=== PATIENT | male | born 1985 | race Caucasian/White ===

== ENCOUNTER 2024-04-22 20:23 | Day surgery (SDC) | payer OTHER, SELFPAY ==
[2024-04-22 11:20] VITALS: BP 149/98
[2024-04-22] MEDS: VALIUM 5 MG PO ×2 (12:56→16:49)
[2024-04-22] MEDS: TORADOL 30 MG IM (12:56)
[2024-04-22 13:34] VITALS: BP 141/91
[2024-04-22] MEDS: PERCOCET 5/325 2 TABLET PO (14:39)
--- NOTE | 2024-04-22 14:45 | ED.GENMED ---
History of Present Illness
<Braulio Manjarrez Jr., PA-C - Last Filed: 04/23/24 10:10>
General
Chief Complaint: Musculo-Skeletal Complaint
Source: patient
Exam Limitations: none
Time Seen by Provider: 04/22/24 11:53
Nursing documentation reviewed up to this point in time: agreed with
History of Present Illness
History of Present Illness:
38-year-old male history of von Willebrand disease presenting to the emergency department today with concerns of right-sided knee discomfort. He claims that he was kneeling on the floor when doing some jennifer and stood up right knee was not able
to extend. Does have a history of ACL MCL and meniscus injuries to the knee. Denies additional injuries otherwise.
Past History
<Braulio Manjarrez Jr., PA-C - Last Filed: 04/23/24 10:10>
Past History
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
ED Past Surgical History: Orthopedic and Other (hernia repair and tonsils and wisdom teeth )
Social History
Tobacco: Non-smoker
Alcohol: Occasional
Drug: None
Personal:
Living: with family
Employment: Employed
Family History
Family History: Other (Noncontributory)
Review of Systems
<Braulio Manjarrez Jr., PA-C - Last Filed: 04/23/24 10:10>
Review of Systems
Allergies reviewed?: Yes
All Other Systems: ROS reviewed and negative except as documented in HPI and ROS
Phy Exam
<Braulio Manjarrez Jr., PA-C - Last Filed: 04/23/24 10:10>
Physical Exam
Physical Exam:
GENERAL: Alert , in no apparent distress
EYE: pupils equal and reactive
NECK: Supple, no significant adenopathy.
ENT: o/p clr, mmm.
CARDIAC: Regular rate and rhythm .
LUNGS: Clear breath sounds bilaterally, no acute respiratory distress, no wheezes/rales/rhonchi
ABDOMEN: Soft, without focal tenderness, no r/g, no cvat
NEUROLOGICAL: Alert and oriented, no focal neuro deficits
SKIN: Warm and dry, skin intact.
MUSCULOSKELETAL: Right knee held at 90 degrees flexion unable to fully extend no specific tenderness to palpation normal distal neurovascular examination well perfused.
PSYCH: Normal and appropriate interaction.
Course
<Braulio Manjarrez Jr., KEIRA-Lupis - Last Filed: 04/23/24 10:10>
Orders/Labs/Results
Orders:
Orders
04/22/24 Breakfast
Regular
At Your Request: Full Participation
04/22/24 12:49
Diazepam [Valium] 5 mg PO NOW STA
Ketorolac [Toradol] 30 mg IM NOW STA
CR Knee- Right 4 Or More View* Urgent
Comment:
Reason For Exam: knee pain stuck in flexion
04/22/24 14:36
Oxycodone/Acetaminophen [Percocet 5/325] 2 tablet PO NOW STA
04/22/24 16:15
HYDROmorphone [Dilaudid] 1 mg IM NOW STA
04/22/24 16:45
Diazepam [Valium] 5 mg PO NOW STA
04/22/24 18:16
IV Insert/Care/Rem.- Treatment PRN
HYDROmorphone [Dilaudid] 1 mg IV NOW STA
04/22/24 18:30
Complete Blood Count/With Diff Urgent
Comprehensive Metabolic Panel Urgent
04/22/24 19:37
Admit/Transfer Patient As Directed
Co-Sign Provider:
Level of Care: Observation services
Assign to:: Medical/Surgical
Physician / Group: Dami
Diagnosis: Right Knee Pain/Locking
Code Status As Directed
Resuscitation Status: Full Code
PRN Pain Medication Management As Directed
May give lesser potent ordered pain med per pt: Yes
preference::
Protocol:: Medication orders for pain may be administered in a
manner that supports deferring to patient preference
when the pt is:
- Requesting an ordered lesser potent pain medication.
Least to most potent pain medications are defined
as: acetaminophen < NSAID < tramadol < opioids
(morphine, oxycodone, hydromorphone).
- Requesting a lesser dose of the same medication IF
ORDERED.
- Requesting a less intrusive route of administration
if both routes are prescribed by the provider (PO <
IV).
04/22/24 21:00
0.9% Sodium Chloride 1000 ml [Nss] 1,000 ml IV 100 mls/hr
Acetaminophen [Tylenol] 650 mg PO Q4HPRN PRN
Ondansetron Injectable [Zofran] 4 mg IV Q6HPRN PRN
Oxycodone [Roxicodone] 5 mg PO Q4HPRN PRN
04/22/24 21:00
ORTHOPEDIC CONSULT Routine
Consulting Provider: Wagner Barrett
Was physician already notified: Yes
Bladder Scan As Directed
Follow Bladder Retention/Intermittent Cath Algorithm?: Yes
PRN if no void in __ hours: 6
Frequency: Per Retention Algorithm
If Bladder Scan Result >: 400
then:: Straight cath
I&O [Intake/ Output] As Directed
Frequency: q12h
Pneumatic Compression Sleeves As Directed
Type: Knee high
Straight Cath As Directed
Frequency: Per Retention Algorithm
Additional Instructions: straight cath as needed per acute urinary retention algorithm for 24 hrs
Additional Instructions: for bladder scan greater than 400 mL
Vital Signs As Directed
Frequency: Per unit guidelines
DX Deep Vein Thrombosis Video Routine
04/22/24 21:09
HYDROmorphone [Dilaudid] 0.5 mg IV Q3HPRN PRN
04/22/24 22:36
PTT Urgent
Prothrombin Time Urgent
04/23/24 Breakfast
NPO
Allow oral meds: Yes
Allow clear liquids: 4hrs prior to procedure
Comment: may have unrestricted clear liquid up to 4 hrs prior to scheduled procedure
Abnormal Lab Results
04/22/24
18:30
RBC 4.53 L 10^6/uL
(4.70-6.10)
Hct 38.2 L %
(39.0-52.0)
MPV 10.7 H fL
(7.4-10.4)
Absolute Monos (auto) 0.7 H 10^3/uL
(0.1-0.6)
Monocytes % 10.3 H %
(1.7-9.3)
Glucose 100 H mg/dl
(70-99)
04/22/24 18:30
04/22/24 18:30
Vital Signs
Initial and Last Documented VS:
Initial Vital Signs
Temp Pulse Resp BP Pulse Ox
97.9 F 95 18 149/98 98
04/22/24 11:20 04/22/24 11:20 04/22/24 11:20 04/22/24 11:20 04/22/24 11:20
Last Documented Vital Signs
Temp Pulse Resp BP Pulse Ox
97.8 F 78 16 138/77 99
04/23/24 07:00 04/23/24 07:00 04/23/24 07:00 04/23/24 07:00 04/23/24 07:00
<Kadie Haro, DO - Last Filed: 04/22/24 18:30>
Orders/Labs/Results
Orders:
Orders
04/22/24 Breakfast
Regular
At Your Request: Full Participation
04/22/24 12:49
Diazepam [Valium] 5 mg PO NOW STA
Ketorolac [Toradol] 30 mg IM NOW STA
CR Knee- Right 4 Or More View* Urgent
Comment:
Reason For Exam: knee pain stuck in flexion
04/22/24 14:36
Oxycodone/Acetaminophen [Percocet 5/325] 2 tablet PO NOW STA
04/22/24 16:15
HYDROmorphone [Dilaudid] 1 mg IM NOW STA
04/22/24 16:45
Diazepam [Valium] 5 mg PO NOW STA
04/22/24 18:16
IV Insert/Care/Rem.- Treatment PRN
HYDROmorphone [Dilaudid] 1 mg IV NOW STA
04/22/24 18:30
Complete Blood Count/With Diff Urgent
Comprehensive Metabolic Panel Urgent
04/22/24 19:37
Admit/Transfer Patient As Directed
Co-Sign Provider:
Level of Care: Observation services
Assign to:: Medical/Surgical
Physician / Group: Dami
Diagnosis: Right Knee Pain/Locking
Code Status As Directed
Resuscitation Status: Full Code
PRN Pain Medication Management As Directed
May give lesser potent ordered pain med per pt: Yes
preference::
Protocol:: Medication orders for pain may be administered in a
manner that supports deferring to patient preference
when the pt is:
- Requesting an ordered lesser potent pain medication.
Least to most potent pain medications are defined
as: acetaminophen < NSAID < tramadol < opioids
(morphine, oxycodone, hydromorphone).
- Requesting a lesser dose of the same medication IF
ORDERED.
- Requesting a less intrusive route of administration
if both routes are prescribed by the provider (PO <
IV).
04/22/24 21:00
0.9% Sodium Chloride 1000 ml [Nss] 1,000 ml IV 100 mls/hr
Acetaminophen [Tylenol] 650 mg PO Q4HPRN PRN
Ondansetron Injectable [Zofran] 4 mg IV Q6HPRN PRN
Oxycodone [Roxicodone] 5 mg PO Q4HPRN PRN
04/22/24 21:00
ORTHOPEDIC CONSULT Routine
Consulting Provider: Wagner Barrett
Was physician already notified: Yes
Bladder Scan As Directed
Follow Bladder Retention/Intermittent Cath Algorithm?: Yes
PRN if no void in __ hours: 6
Frequency: Per Retention Algorithm
If Bladder Scan Result >: 400
then:: Straight cath
I&O [Intake/ Output] As Directed
Frequency: q12h
Pneumatic Compression Sleeves As Directed
Type: Knee high
Straight Cath As Directed
Frequency: Per Retention Algorithm
Additional Instructions: straight cath as needed per acute urinary retention algorithm for 24 hrs
Additional Instructions: for bladder scan greater than 400 mL
Vital Signs As Directed
Frequency: Per unit guidelines
DX Deep Vein Thrombosis Video Routine
04/22/24 21:09
HYDROmorphone [Dilaudid] 0.5 mg IV Q3HPRN PRN
04/22/24 22:36
PTT Urgent
Prothrombin Time Urgent
04/23/24 Breakfast
NPO
Allow oral meds: Yes
Allow clear liquids: 4hrs prior to procedure
Comment: may have unrestricted clear liquid up to 4 hrs prior to scheduled procedure
Abnormal Lab Results
04/22/24
18:30
RBC 4.53 L 10^6/uL
(4.70-6.10)
Hct 38.2 L %
(39.0-52.0)
MPV 10.7 H fL
(7.4-10.4)
Absolute Monos (auto) 0.7 H 10^3/uL
(0.1-0.6)
Monocytes % 10.3 H %
(1.7-9.3)
Glucose 100 H mg/dl
(70-99)
04/22/24 18:30
04/22/24 18:30
Vital Signs
Initial and Last Documented VS:
Initial Vital Signs
Temp Pulse Resp BP Pulse Ox
97.9 F 95 18 149/98 98
04/22/24 11:20 04/22/24 11:20 04/22/24 11:20 04/22/24 11:20 04/22/24 11:20
Last Documented Vital Signs
Temp Pulse Resp BP Pulse Ox
97.8 F 78 16 138/77 99
04/23/24 07:00 04/23/24 07:00 04/23/24 07:00 04/23/24 07:00 04/23/24 07:00
<Braulio Manjarrez Jr., KEIRA-Lupis - Last Filed: 04/23/24 10:10>
MDM/Problems Addressed
MDM/Problems Addressed:
38-year-old male presenting to the emergency department today with concerns of right-sided knee discomfort held at here at 90 degrees unable to extend secondary to pain. Occurred after kneeling on the ground. No specific trauma to the area. Vital
signs normal here no redness or warmth no signs of infection patella seems to be in place normal distal neurovascular examination. Potentially meniscal injury x-ray without signs of acute abnormalities. Patient was given Valium as well as Toradol
to help with muscle laxation still unable to straighten the leg. Was given additional IM dose of Dilaudid still pain uncontrolled unable to straighten the leg. Case discussed with orthopedics and recommended lidocaine injection to the knee and
then try to straighten the leg after that. Lidocaine injection was attempted but still without proper pain control. Still unable to extend the leg. Again Case discussed with orthopedics and they were informed that we are unable to properly extend
the patient's leg despite multiple times and modalities of pain control in the ER concerning this plan to admit for pain control and potential OR intervention.
<Braulio Manjarrez Jr., PA-C - Last Filed: 04/23/24 10:10>
*Critical Care Note
Total Time (30-74mins, 75-104mins- exclusive of procedures): Not Applicable
ED Attending Note
<Braulio Manjarrez Jr., PA-C - Last Filed: 04/23/24 10:10>
-
Portions of this chart may have been created with voice recognition software.� Occasional wrong word or��sound alike� substitutions may have occurred due to the inherent limitations of voice recognition software.
<Kadie Haro DO - Last Filed: 04/22/24 18:30>
ED Attending Note
Patient seen and examined by attending physician: Yes
I performed the substantive portion of visit, reviewed & personally made and approve the management plan that is documented in note by myself or TARA.: Yes
I performed a history and physical exam of patient and discussed management with resident, I reviewed resident's note and agree with documented findings and plan of care.: Yes
ED Attending Note:
Patient seen and examined at bedside, 38-year-old male with prior history of meniscal injury to the right knee presenting for right knee pain. Patient reports prior to arrival he was kneeling down and when he got up, was unable to extend his knee.
Denies numbness or tingling to the knee. Denies ever having this issue in the past. Denies any direct trauma. Patient seen and evaluated by physician psychiatric nursing assistant, x-ray obtained, limited given positioning of knee, without fracture or malalignment.
On my examination, knee is held in flexed position. Distal sensation and pulses intact. Physician psychiatric nursing assistant had tried IV pain medication and intra-articular lidocaine, without success of extension. Attempted myself x 2 to administer bupivacaine
intra-articularly. Patient had difficulty tolerating procedure, and after procedure, again unable to extend. Did discuss with orthopedics. Plan for admission for pain control and orthopedic consultation.
Discharge Plan
Departure
Patient Disposition: Admit
Date of Disposition: 04/22/24
Time of Disposition: 18:37
Admit to: Med/Surg
Admit to doctor: Nikolay
Presentation/result/management discussed w/ accepting MD/DO: Hospitalist
Patient with high blood pressure during this ER visit?: No
Condition: Good
Covid-19: Not Applicable
Discharge Problem:
Locking of right knee, Acute knee pain
Interventions
Interventions:
*Risk Screen - Suicide Last Done: 04/22/24 11:20
*General Assessment Last Done: 04/22/24 11:20
*Neglect/Abuse Screening Last Done: 04/22/24 11:20
ED- Fall Risk Assessment Last Done: 04/22/24 20:57
*ED COVID-19 Vaccine History Last Done: 04/22/24 11:48
*Nursing Disposition Last Done: 04/22/24 20:57
ED-Musculoskeletal Assessment Last Done: 04/22/24 11:48
Discharge Date and Time
Discharge Date/Time: 04/22/24 20:58
[2024-04-22 15:59] VITALS: BP 138/79
[2024-04-22] MEDS: DILAUDID 1 MG IM (16:18)
[2024-04-22] MEDS: DILAUDID 1 MG IV (18:35)
[2024-04-22 18:37] VITALS: BP 166/98
[2024-04-22 18:39] LABS: % Basophils 0.4 % (0-2); % Eosinophils 1.1 % (0-6); % Immature Granulocytes 0.3 % (0-0.5); % Lymphocytes 34.5 % (20.5-51.1); % Monocytes 10.3 % (1.7-9.3); % Neutrophils 53.4 % (42.2-75.2); Absolute Eosinophils 0.1 10^3/uL (0-0.7); Absolute Lymphocytes 2.4 10^3/uL (1.2-3.4); Absolute Monocytes 0.7 10^3/uL (0.1-0.6); Absolute Neutrophils 3.8 10^3/uL (1.4-6.5); Hematocrit 38.2 % (39.0-52.0); Hemoglobin 13.8 g/dL (13.0-18.0); Mean Corp Hgb Conc. 36.1 g/dL (33.0-37.0); Mean Corpuscular Hgb 30.5 pg (27.0-31.0); Mean Corpuscular Volume 84.3 fL (80.0-94.0); Mean Platelet Volume 10.7 fL (7.4-10.4); Nucleated Red Blood Cells % 0 % (-); Platelet Count 201 10^3/uL (130-400); Red Blood Cell Count 4.53 10^6/uL (4.70-6.10); Red Cell Dist. Width 12.6 % (11.5-14.5)
[2024-04-22 19:00] LABS: ALT (SGPT) 21 U/L (0-50); AST (SGOT) 28 U/L (17-59); Albumin 4.4 g/dl (3.5-5.0); Alkaline Phosphatase 59 U/L (38-126); Blood Urea Nitrogen 16 mg/dl (9-20); Calcium 9.6 mg/dl (8.4-10.2); Carbon Dioxide 27 mmol/L (22-30); Chloride 100 mmol/L (98-107); Glucose 100 mg/dl (70-99); Sodium 138 mmol/L (135-145); Total Protein 6.6 g/dl (6.3-8.2); eGFR > 60.00
--- NOTE | 2024-04-22 19:40 | HPS.HSE ---
Addendum entered and electronically signed by Kristian Lomax DO 04/22/24 21:06:
Patient seen and examined independently. Agree with findings and plan as set forth by Dejah Morales PA-C.
Patient is a 38y M with PMH significant for prior ACL and MCL repairs of the R knee who presents to ED complaining of inability to straighten his R knee and associated pain. 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
installation. When he stood up he was unable to straighten his R knee. He has pain with attempts to straighten the knee. He denies any recent illness, fevers / chills, erythema or swelling.
Patient was seen in the ED where multiple attempts to extend his knee were unsuccessful.
Ass:
Right Knee Flexion / Pain
Plan:
Observe overnight for further evaluation and treatment.
Ortho evaluation in the AM and possible OR if symptoms worsen or persist.
Original Note:
Family Physician
-
Family Physician: Alfonzo Kwon
Chief Complaint
-
Severe Right Knee Pain
History of Present Illness
Pt is a 38 yo M without significant PMH c/o R knee pain and inability to straighten R knee x 1 day. Pt states he was crawling on hands and knees today and when he stood up his R knee locked in a flexed position. Pt denies notable swelling or
erythema. He has a prior hx of 3 surgeries to R knee including ACL, MCL and meniscus. Pt denies fever, headache, chest pain, palpitations, shortness of breath, abdominal pain, weakness, and paresthesia. He denies any recent illness or injury to
affected knee. Despite multiple attempts in ED patient is unable to straighten his knee.
Medical History
Past Medical History
Past Medical History: Reports Other
Additional Past Medical History:
ADHD
Past Surgical History: Reports Other
Additional Past Surgical History:
Right ACL/MCL/Meniscus
Hernia Repair
Tonsillectomy
Social History
Tobacco: Non-smoker
Alcohol: Occasional
Family History
Family History: Not pertinent
Allergies / Home Medications
Allergies reflects when Allergies were last updated in [employer].
Home Medications with original date entered in [employer]
Allergy/Medication List:
Allergies
Allergy/AdvReac Type Severity Reaction Status Date / Time
No Known Allergies Allergy Unverified 04/22/24 11:20
Home Medications
ibuprofen 200 mg tablet (Advil) 400 mg PO Q6HPRN PRN mild pain 04/22/24
lisdexamfetamine 70 mg capsule (Vyvanse) 70 mg PO DAILY 04/22/24
Review of Systems
-
A 12 point ROS was completed and negative except as noted: Yes
Constitutional: Denies Fever or Chills
Respiratory: Denies Cough or Trouble Breathing
Cardiac: Denies Chest Pain or Palpitations
Abdomen/GI: Denies Abdominal Pain, Nausea, Vomiting, Diarrhea or Constipated
Musculoskeletal: Reports See HPI
Physical Exam
Vital Signs
Vital Signs
Temp Pulse Resp BP Pulse Ox
97.9 F 81 16 166/98 99
04/22/24 11:20 04/22/24 18:37 04/22/24 18:37 04/22/24 18:37 04/22/24 18:37
Physical Exam
General: Comfortable (Following several doses of pain medication given in ED) and Conversant
HEENT: Anicteric and Moist mucous membranes
Respiratory: Clear and Non Labored Respirations
Cardiac: S1/S2 and Regular Rhythm
GI: Soft and Non Tender
Rectal: Deferred by Provider
Musculoskeletal: No Edema and Other (Holding right knee in flexed position)
Skin: Warm and Dry
Neuro: Awake, Alert, Oriented and Nonfocal/grossly intact
Psych: Calm
Laboratory Results
-
04/22/24 18:30
04/22/24 18:30
Laboratory Results
Total Bilirubin 1.0 mg/dl (0.2-1.3) 04/22/24 18:30
AST 28 U/L (17-59) 04/22/24 18:30
ALT 21 U/L (0-50) 04/22/24 18:30
Alkaline Phosphatase 59 U/L (38-126) 04/22/24 18:30
Data Reviewed
-
Lab Data: Labs Reviewed by me
Impression/Plan
-
Acute Right Knee Pain with inability to extend right knee
-Multiple failed interventions/attempts in ED
-Consult Orthopedics
-NPO after midnight for OR in AM
-Continue Tylenol, Oxycodone and Dilaudid for pain control
DVT proph: SCDs
Code Status: Full Code
[2024-04-22 21:09] VITALS: BP 142/78
[2024-04-22 21:12] VITALS: BMI 37.7
[2024-04-22] MEDS: ZOFRAN 4 MG IV (21:24)
[2024-04-22] MEDS: NSS 1000 IV (21:30)
[2024-04-22] MEDS: ROXICODONE 5 MG PO (21:47)
[2024-04-22 22:56] LABS: INR 1.08; PT 13.9 Sec (11.4-14.6)
[2024-04-22 22:57] LABS: APTT 24.9 Sec (23.4-35.0)
[2024-04-22] MEDS: COMPAZINE 5 MG IV (22:57)
[2024-04-22 23:43] VITALS: BP 145/87
[2024-04-22] MEDS: DILAUDID 0.5 MG IV (23:49)
[2024-04-23] VITALS (9 sets, daily range): BP systolic 114–142; BP diastolic 76–86
[2024-04-23] MEDS: TUMS 1 TABLET PO (01:09)
[2024-04-23] MEDS: ROXICODONE 5 MG PO ×2 (01:47→12:22)
--- NOTE | 2024-04-23 07:48 | CON.ORTHO ---
Consultation
-
Date/Time Consultation Requested: 04/22/2024; time unknown
Date/Time Consultation Performed: 04/23/2024; 0700
Requesting Provider: unknown
Performing Provider: Zulay Simpson PA-C for Dr. Wagner Barrett
Reason for Consultation: Right knee pain and locking
Consultation - Orthopedics
History
Mr. Hardy is a 38 year old male with no significant PMH seen today for evaluation of his right knee. He reports he was kneeling and crawling on the floor while doing work for an extended period of time yesterday. When he attempted to stand up, his
knee was locked in a flexed position and he was unable to extend it. He presented to ED for further evaluation. He was still unable to extend leg after administration of Valium, Toradol and Dilaudid, as well as an intraarticular injection of
lidocaine. He is resting comfortably in bed this morning, and denies any pain in the knee at present. He has a history of three prior arthroscopies (2 at [facility], 1 at [facility] with Dr. Barrett). He denies PMH of DVT, CVA, GA or DM. He denies any
autoimmune conditions. He lives independently. He ambulates without assistance at baseline. He denies known history of difficulty with anesthesia.
Allergies / Home Medications
Allergy/AdvReac Type Severity Reaction Status Date / Time
No Known Allergies Allergy Unverified 04/22/24 11:20
�Medication �Instructions �Recorded
ibuprofen 200 mg tablet (Advil) 400 mg PO Q6HPRN PRN mild pain 04/22/24
lisdexamfetamine 70 mg capsule 70 mg PO DAILY 04/22/24
(Vyvanse)
Vital Signs / Lab Results
Temp Pulse Resp BP Pulse Ox
97.8 F 79 20 145/87 98
04/22/24 23:43 04/22/24 23:43 04/22/24 23:43 04/22/24 23:43 04/22/24 23:43
04/22/24 18:30
04/22/24 18:30
XR Right Knee 04/22/2024 FINDINGS:
AP views are limited because the knee is in slightly greater than 90 degrees of flexion.
There is evidence of previous ACL repair with interference screws in the distal femur and proximal tibia. There is no gross evidence for fracture. Mild degenerative change of patellofemoral compartment. No significant joint effusion is identified.
Directed exam of the right lower extremity reveals knee held in flexed position. No significant erythema, ecchymosis or lesions. No tenderness to palpation about the knee. Unable to perform any passive or active ROM of the knee. Significant pain
with any attempt at knee ROM. Calf soft and nontender. Neurovascularly intact distally.
Assessment / Plan
Right knee pain and locking
--Unfortunately, multiple attempts at moving Mr. Griggss knee have been unsuccessful. At this point, we recommend proceeding with right knee arthroscopy with partial medial meniscectomy. The risks, benefits, alternatives, recovery process and
potential complications were discussed in detail. All patient questions were answered. Surgical and blood consent signed and in patient's chart. We will proceed with surgery today under the direction of Dr. Barrett.
--NPO until surgery.
--Continue pain control per primary. Ice prn for pain and edema control.
--Ancef ordered to OR.
--Orthopedics will continue to follow along.
[2024-04-23] MEDS: NSS 1000 IV (08:16)
--- NOTE | 2024-04-23 10:06 | CM ---
Patient seen at bedside with Nicole.
IA completed. Observation form explained & signed. Placed in chart.
Dx: R knee pain/locking
PMH: Prior ACL & MCL repairs
PLOF: Independent uses no AD, driving.
No DME at home.
Patient is self employed kitchen/bath contractor. Lives in a 2 story home with and 1 step to enter home. 12 steps to the second floor.
Denies past home health or rehab.
No needs identified.
PCP: Alfonzo Kwon
Pharmacy: [facility]
PLAN: Discharge home when stable. Currently no needs anticipated.
--- NOTE | 2024-04-23 14:22 | W.PN.HOSP.TC ---
Today's Communication/Plan
-
Follow-up in OR procedure
As needed analgesia
Monitor bowel status after procedure
Assessment / Plan
Assessment / Plan
#Acute Right Knee Pain with inability to extend right knee
-Likely related to previous meniscus and ACL injuries
-Multiple failed interventions/attempts in ED to mobilize the knee
-OR today for orthopedic procedure, right knee arthroscopy with partial medial meniscectomy
-Continue Tylenol, Oxycodone (5 mg moderate pain, 10 mg severe pain)
DVT proph: SCDs
Diet: N.p.o. pending procedure, regular after
Code Status: Full Code
Anticipated Discharge: 24 - 48 hours
Subjective/Interval History
-
Date of Service: April 23, 2024
Seen and examined at the bedside this morning. No acute events overnight. Plan for OR today with meniscus repair
He remains afebrile, hemodynamically stable, on room air comfortably.
Denies chest pain, shortness of breath, palpitations or lightheadedness, fevers or chills, nausea, vomiting, diarrhea, constipation, bleeding or bruising, urinary issues, paresthesias or weakness. He does have stable pain to his right knee though
manageable without significant movement.
Objective Data
-
Vital Signs:
Vital Signs
Temp Pulse Resp BP Pulse Ox
97.8 F 78 16 138/77 99
04/23/24 07:00 04/23/24 07:00 04/23/24 07:00 04/23/24 07:00 04/23/24 10:35
I&O
04/22/24 04/23/24 04/24/24
06:59 06:59 06:59
Intake Total 1240 / 1240
Output Total 900 / 900
Balance 340 / 340
Review of Systems
-
History Source: Patient
All other systems: Reviewed and negative
Physical Exam
-
General: Well Nourished, No Apparent Distress and Comfortable
HEENT: Normocephalic, Atraumatic, Moist Mucous Membranes and Anicteric
Respiratory: Clear to Auscultation and Non Labored Respirations; Negative Wheezes, Rales or Rhonchi
Cardiac: Regular Rhythm and S1/S2; Negative Murmur, Rub, JVD or Gallop
GI: Soft, Nontender, Nondistended and Normal Bowel Sounds
Musculoskeletal: No Clubbing, No Cyanosis, No Edema and Other (Contracted at right knee, no swelling or sign of effusion)
Skin: Warm and Dry; Negative Rash or Jaundice
Neuro: AO x 3, Nonfocal/Grossly Intact and Central Nerve's Intact
Data Reviewed
-
Labs: Labs Reviewed by me, Discussed with Patient and Discussed with Family
[2024-04-23] MEDS: ROXICODONE 10 MG PO (14:48)
--- NOTE | 2024-04-23 16:23 | W.PN.UPDATE ---
Update Note
Progress Note Update
Just completed knee scope, he had a locked meniscus which cleaned up nicely, now knee is straight. OK for discharge from ortho point of view.
--- NOTE | 2024-04-23 17:02 | W.DCSUMMARY ---
Discharge Summary
Discharge Data
Date of Admission: 04/22/24
Date of Discharge: 04/23/24
-
Pending Results: No
Hospital Course
38-year-old male with history of ACL and medial meniscus injury, ADHD that presented with a locked and painful right knee. Unable to straighten the knee upon multiple attempts while in the ED after initially being admitted. Orthopedist team
performed arthroscopy with meniscus repair with immediate ability to straighten the knee following his procedure. I assessed him in the PACU after his procedure and he felt well, minimal pain at the time. Stable for discharge following uneventful
postanesthesia course. Discharged with prescription for 5 days of oxycodone as needed, physical therapy prescription provided
Discharge Plan
-
Patient Disposition: Home (Routine Discharge)
Discharge Diagnosis/Procedures: Meniscus repair
Right knee pain and locking
Condition: Good
Diet: No restrictions
Activity: As tolerated
Driving Restrictions: No driving for 24 hours
Bathing Restrictions: OK to Shower
Blood Work: None
Others Tests: None
Other Services: PT
Activity Restrictions/Additional Instructions:
Schedule follow-up appointment with your family doctor and orthopedist within 7 days of discharge from the hospital. Call to schedule physical therapy, prescription provided to you at discharge. Follow all orthopedic recommendations concerning
postsurgical care related to your knee.
Instructions: Meniscal tear, Arthroscopy (DC)
Referrals:
Zulay Simpson PA-C [Specified Professional Personl] - in two weeks
Alfonzo Kwon DO [Family Provider] -
Additional Discharge Medication Instructions: Take oxycodone as needed every 6 hours for pain:
-5 mg for moderate pain
-10 mg for severe pain
Take Tylenol OTC as needed for mild pain
Prescriptions:
New
oxycodone 5 mg Tablet
5 mg PO Q6HPRN PRN (Reason: moderate to severe pain) 5 Days Qty: 20 0RF
Rx Instructions:
moderate pain take 1 tab
severe pain take 2 tabs
acetaminophen 325 mg Tablet
650 mg PO Q4HPRN PRN (Reason: mild pain) 7 Days Qty: 30 0RF
Continued
lisdexamfetamine [Vyvanse] 70 mg Capsule
70 mg PO DAILY
Discontinued
ibuprofen [Advil] 200 mg Tablet
400 mg PO Q6HPRN PRN (Reason: mild pain)
Discharge Orders:
Discharge Patient (As Directed); Ordered 04/23/24
Ordered By: Duglas Bond
Discharge Date and Time
Print Language: YI
[2024-04-23] MEDS: NSS IV (18:55)
--- NOTE | 2024-04-23 19:33 | PTCARENOTE ---
Pt was giving discharge paperwork. VSS. Pt understand if complication arise and follow up with referral. at bedside.
== END 2024-04-23 19:42 | disposition home or self-care (01) ==
LOC: PACU 20:23
PROVIDERS: Physician Assistant Medical; ATTENDING PHYSICIAN Internal Medicine; CONSULT PHYSICIAN Specialist; EMERGENCY PHYSICIAN Student in an Organized Health Care Education/Training Program; FAMILY PHYSICIAN Family Medicine
DX: S83.211A Bucket-handle tear of medial meniscus, current injury, right knee, initial encounter (principal); X50.1XXA Overexertion from prolonged static or awkward postures, initial encounter; M22.41 Chondromalacia patellae, right knee; M17.11 Unilateral primary osteoarthritis, right knee
CPT/HCPCS: 29881; 73564; 80053; 85025; 85610; 85730; 87070; 96372; 96374; 99285; G0378

== ENCOUNTER → 2024-12-08 09:11 | Outpatient (REF) | payer OTHER, SELFPAY | LOC: WDC 09:11 | PROVIDERS: ATTENDING PHYSICIAN Student in an Organized Health Care Education/Training Program; FAMILY PHYSICIAN Physician Assistant Medical | DX: N63.12 Unspecified lump in the right breast, upper inner quadrant (principal) | CPT/HCPCS: 76642; 77062; 77066 ==

== ENCOUNTER → 2025-02-02 10:17 | Outpatient (REF) | payer OTHER, SELFPAY | LOC: RAD 10:17 | PROVIDERS: ATTENDING PHYSICIAN Family Medicine; FAMILY PHYSICIAN Student in an Organized Health Care Education/Training Program | DX: R10.9 Unspecified abdominal pain (principal); M54.50 Low back pain, unspecified | CPT/HCPCS: 74177; Q9967 ==

== ENCOUNTER 2025-06-01 18:05 | Emergency (ER) | payer OTHER, SELFPAY ==
[2025-06-01 18:07] VITALS: BP 164/99
--- NOTE | 2025-06-01 18:57 | ED.GENMED ---
History of Present Illness
General
Chief Complaint: DVT/Possible Blood Clot
Time Seen by Provider: 06/01/25 18:56
History of Present Illness
History of Present Illness:
FOCUSED PAST MEDICAL HISTORY
- Meniscal injuries to the right knee
REVIEW OF OLD RECORDS
- I reviewed records, the patient was admitted here in March 2024 with painful right knee and at that time had partial medial meniscectomy
Note:
CHIEF COMPLAINT(S)
Pain and swelling behind the right knee.
HISTORY OF PRESENT ILLNESS
The patient is a 39-year-old male with a history of multiple knee surgeries presenting with right knee pain and swelling. The onset of symptoms began around May 13 while the patient was working on jennifer, suspecting a Bakers cyst behind
the knee due to soreness. No initial ultrasound was conducted at that time. The patient noted a 'pop' while stretching on or around May 21, after which the swelling behind the knee disappeared, but mild soreness persisted.
During a trip to [place], the patient reported increasing soreness starting , which escalated in severity over Sunday and into the weekend, with significant tenderness by Sunday. The patient has a familial history suggestive of Von
Willebrands disease; however, recent testing indicated that he does not have the condition, though some family members do. Despite this, he reports being treated as though he has the condition for surgeries in the past.
ADDITIONAL HISTORY OBTAINED FROM SOURCES OTHER THAN THE PATIENT
Per family history, there is concern regarding Von Willebrands disease, but the patient and two siblings have tested negative.
SOCIAL HISTORY
The patient reported participating in physical activity such as fishing, which involved travel to [place].
REVIEW OF SYSTEMS
- Vascular: Suspected Bakers cyst, soreness around the knee joint.
- Musculoskeletal: History of multiple surgeries on the knee, absence of meniscus, previous unconfirmed suspected Bakers cyst, recent 'pop' and subsequent soreness in the knee.
- Respiratory: No breathing difficulties reported.
PHYSICAL EXAM
General: Alert, no acute distress.
Skin: Warm, dry.
Head: Normocephalic, atraumatic.
Neck: Supple, trachea midline.
Eye, Ears, Nose, Mouth and Throat: Oral mucosa moist.
Cardiovascular: Normal peripheral perfusion, No edema.
Respiratory: Respirations are non-labored.
Gastrointestinal: Abdomen nondistended.
Back: Normal range of motion, Normal alignment.
Musculoskeletal: Normal range of motion, normal strength; noticeable tenseness in the right calf muscle.
Neurological: Alert and oriented to person, place, time, and situation, No focal neurological deficit observed.
Psychiatric: Cooperative, appropriate mood & affect.
PLAN
Perform an ultrasound to assess for any clots or fluid collections related to the suspected Bakers cyst rupture. Consider outpatient management with blood thinners if applicable, based on ultrasound findings.
DIFFERENTIAL DIAGNOSIS
The Differential Diagnosis includes, in no particular order and is not limited to:
1. Bakers cyst
2. Deep vein thrombosis
3. Meniscal tear
4. Hematoma
5. Muscle strain
6. Cellulitis
7. Osteoarthritis flare
8. Ruptured cyst
9. Hemarthrosis
10. Infection in the joint or surrounding tissue
RADIOLOGY
- Ultrasound imaging obtained and shows Patiño's cyst without DVT
UPDATE
-SUMMARY OF ENCOUNTER
The patient presented to the emergency department with pain and swelling behind the right knee. An ultrasound of the right leg was performed, which showed no deep vein thrombosis (DVT) but identified a complex fluid collection behind the right knee,
suggestive of a Bakers cyst that appears partially ruptured. Management in the emergency department involved discussing the likely self-limiting nature of the Bakers cyst and recommending anti-inflammatory medications as symptomatic relief. No
immediate surgical intervention is required as these cysts usually resolve on their own.
DISPOSITION
Discharge.
ASSESSMENT
The patient likely has a partially ruptured Bakers cyst in the right knee, evidenced by ultrasound findings indicating a complex fluid collection.
PLAN
The patient is advised to follow up with an orthopedist, such as Dr. Ceja, for further evaluation and management if symptoms persist or worsen. Symptomatic management with anti-inflammatory medications was suggested.
INDEPENDENT REVIEW OF LABS AND INTERPRETATION OF TESTS
- My independent interpretation of the ultrasound is that it shows a complex fluid collection behind the right knee consistent with a partially ruptured Bakers cyst, with no evidence of deep vein thrombosis.
MEDICATION RECONCILIATION
Prescription medication was prescribed for anti-inflammatory therapy.
MEDICAL DECISION MAKING
- Number and Complexity of Problems Addressed: Chronic conditions affecting care include a history of knee issues and surgeries. Differential diagnosis includes Bakers cyst, deep vein thrombosis, meniscal tear, hematoma, muscle strain, cellulitis,
osteoarthritis flare, ruptured cyst, hemarthrosis, and an infection in the joint or surrounding tissue.
- Data:
- Category 1: Tests reviewed include an ultrasound of the right leg.
- Category 2: Clinical information was indirectly confirmed by specialists involved in the imaging process.
- Risk: Prescription medication for anti-inflammatory therapy was considered and prescribed.
DIAGNOSIS
- Bakers cyst, right knee, partially ruptured (ICD-10: M71.20).
Past History
Past History
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
ED Past Surgical History: Orthopedic and Other (hernia repair and tonsils and wisdom teeth )
Social History
Tobacco: Non-smoker
Alcohol: Occasional
Drug: None
Personal:
Living: with family
Employment: Employed
Family History
Family History: Other (Noncontributory)
Phy Exam
Physical Exam
Physical Exam:
See HPI
Course
Orders/Labs/Results
Orders:
Orders
06/01/25 18:06
Venous Doppler Lwr Ext Rt [US Periph Venous LOWER Ext RT] Urgent
Comment:
Reason For Exam: pain
Vital Signs
Initial and Last Documented VS:
Initial Vital Signs
Temp Pulse Resp BP Pulse Ox
36.7 C 77 18 164/99 100
06/01/25 18:07 06/01/25 18:07 06/01/25 18:07 06/01/25 18:07 06/01/25 18:07
Last Documented Vital Signs
Temp Pulse Resp BP Pulse Ox
36.7 C 77 18 164/99 100
06/01/25 18:07 06/01/25 18:07 06/01/25 18:07 06/01/25 18:07 06/01/25 18:58
*Pulse Oximetry
SaO2: 100
Oxygen Mode of Delivery: Room air
Patient hypoxic: no
*Critical Care Note
Total Time (30-74mins, 75-104mins- exclusive of procedures): Not Applicable
ED Attending Note
-
Portions of this chart may have been created with voice recognition software.� Occasional wrong word or��sound alike� substitutions may have occurred due to the inherent limitations of voice recognition software.
Discharge Plan
Departure
Patient Disposition: Home (Routine Discharge)
Date of Disposition: 06/01/25
Time of Disposition: 20:24
Patient with high blood pressure during this ER visit?: Yes
Discharge Problem:
Patiño's cyst of knee
Instructions: Patiño's Cyst (DC), BLOOD PRESSURE
Prescriptions:
No Action
lisdexamfetamine [Vyvanse] 70 mg Capsule
70 mg PO DAILY
oxycodone 5 mg Tablet
5 mg PO Q6HPRN PRN (Reason: moderate to severe pain) 5 Days Qty: 20 0RF
Rx Instructions:
moderate pain take 1 tab
severe pain take 2 tabs
acetaminophen 325 mg Tablet
650 mg PO Q4HPRN PRN (Reason: mild pain) 7 Days Qty: 30 0RF
Referrals:
Adenike Garcia PA-C [Family Provider, Family Practice]
Cain Ceja MD [Active, Orthopedics]
Activity Restrictions/Additional Instructions:
The ultrasound of your right leg shows no deep vein thrombosis. You do have a complex fluid collection behind the right knee suggestive of a Patiño's cyst which is partially ruptured. You could follow-up with an orthopedist such as Dr. Ceja.
Interventions
Interventions:
*Risk Screen - Suicide Last Done: 06/01/25 18:07
*General Assessment Last Done: 06/01/25 18:07
ED- Cardiac Assessment Last Done: 06/01/25 19:23
ED- Pulmonary Assessment Last Done: 06/01/25 19:23
ED-Peripheral Vascular Assessment Last Done: 06/01/25 19:23
ED-Skin Assessment Last Done: 06/01/25 19:23
Discharge Date and Time
Print Language: MOLDOVAN
== END 2025-06-01 20:37 | disposition home or self-care (01) ==
LOC: EMR 18:05
PROVIDERS: EMERGENCY PHYSICIAN Emergency Medicine; FAMILY PHYSICIAN Student in an Organized Health Care Education/Training Program
DX: M71.21 Synovial cyst of popliteal space [Baker], right knee (principal); R22.41 Localized swelling, mass and lump, right lower limb; D68.00 Von Willebrand disease, unspecified
CPT/HCPCS: 99284; 93971